=== PATIENT | male | born 1960 | race Caucasian/White ===

== ENCOUNTER 2021-05-25 13:38 | Emergency (ER) | payer OTHER ==
[2021-05-25 14:23] LABS: Protime INR 1.09
[2021-05-25 14:28] LABS: Absolute Lymphocytes (CBC) 1.4 K/uL (0.7-4.9); Basophils % 0.5 % (0-1.3); Hematocrit 49.9 % (39.6-49.0); Lymphocytes % 16.3 % (15.3-44.8); MPV 8.5 fL (7.6-11.3); RBC Red Blood Cell Count 5.38 M/uL (4.33-5.43)
[2021-05-25 15:01] LABS: Urine Blood Negative (Negative); Urine Glucose Negative (Negative); Urine Protein Negative (Negative); Urine Specific Gravity 1.025 (1.005-1.030)
--- NOTE | 2021-05-25 15:06 | RAD REPORT ---
EXAM DESCRIPTION: RAD - Chest Single View - 05/25/2021 2:59 pm CLINICAL HISTORY: COUGH COMPARISON: No comparisons FINDINGS: Lines: None. Lungs: No evidence of edema or pneumonia. Pleural: No significant pleural effusions or pneumothorax. Cardiac: The heart size is within normal limits. Bones: No acute fractures. Other: IMPRESSION: No acute cardiopulmonary disease.
[2021-05-25] MEDS ORDERED: NA CHLORIDE 0.9% 1,000 ML ONE (15:31)
[2021-05-25] MEDS ORDERED: NA CHLORIDE 0.9% 500 ML ONE (15:31)
[2021-05-25] MEDS ORDERED: THIAMINE 200 MG/2 ML INJ ONE (15:31)
[2021-05-25 16:42] LABS: ALT/SGPT 39 U/L (12-78); AST/SGOT 23 U/L (15-37); Albumin 4.1 g/dL (3.4-5.0); Alkaline Phosphatase 54 U/L (45-117); BUN Blood Urea Nitrogen 25 mg/dL (7-18); Bicarbonate 25 mmol/L (21-32); Bilirubin Direct 0.3 mg/dL (0-0.2); Bilirubin Total 1.9 mg/dL (0.2-1.0); Glucose Level 152 mg/dL (74-106); Lipase 98 U/L (73-393); Magnesium 2.1 mg/dL (1.8-2.4); NT PRO-BNP 24 pg/mL (<125); Protein, Total 8.5 g/dL (6.4-8.2); Sodium Level 137 mmol/L (136-145); Troponin (Emerg Dept Use Only) < 0.02 ng/mL (0.0-0.045)
[2021-05-25 16:43] LABS: Potassium 2.7 mmol/L (3.5-5.1)
--- NOTE | 2021-05-25 17:27 | EDPHYS ---
Physician Documentation [facility] Name: Mauricio Spears Age: 61 yrs Sex: Male : 1960 Arrival Date: 05/25/2021 Time: 13:38 Bed 13 Private MD: PREETI Physician Diony Castillo HPI: 05/25 17:18 This 61 yrs old Male presents to ER via Ambulatory with complaints of lashay Irregular Pulse. 17:18 The patient presents with a history of irregular heart beat, heart skipping beats. lashay Context: The symptoms occur at rest. Onset: The symptoms/episode began/occurred 2 day(s) ago. Duration: The patient or guardian reports multiple episodes, that wax and wane. Modifying factors: The symptoms are aggravated by nothing. The symptoms are alleviated by nothing. 17:19 The patient presents to the emergency department with diarrhea, that is intermittent. lashay Possible causes: unknown. no specific travel. Historical: - Allergies: 14:03 Morphine; ap3 - Home Meds: 14:03 losartan 100 mg oral tab 1 tab once daily [Active]; hydrochlorothiazide 25 mg Oral tab ap3 1 tab once daily [Active]; Zyrtec Oral [Active]; - PMHx: 14:03 Hypertensive disorder; ap3 - Immunization history:: Adult Immunizations up to date, Client reports receiving the 2nd dose of the Covid vaccine, Date received: October 2020. - Social history:: Smoking status: Patient denies any tobacco usage or history of. Patient uses alcohol, on a daily basis. drinks approx 4oz bourbon daily . ROS: 17:21 Constitutional: Negative for fever, chills, and weight loss, Eyes: Negative for injury, lashay pain, redness, and discharge, ENT: Negative for injury, pain, and discharge, Neck: Negative for injury, pain, and swelling, Respiratory: Negative for shortness of breath, cough, wheezing, and pleuritic chest pain, Abdomen/GI: Negative for abdominal pain, nausea, vomiting, diarrhea, and constipation, Back: Negative for injury and pain, : Negative for injury, bleeding, discharge, and swelling, MS/Extremity: Negative for injury and deformity, Skin: Negative for injury, rash, and discoloration, Neuro: Negative for headache, weakness, numbness, tingling, and seizure, Psych: Negative for depression, anxiety, suicide ideation, homicidal ideation, and hallucinations, Allergy/Immunology: Negative for hives, rash, and allergies, Endocrine: Negative for neck swelling, polydipsia, polyuria, polyphagia, and marked weight changes, Hematologic/Lymphatic: Negative for swollen nodes, abnormal bleeding, and unusual bruising. 17:21 Cardiovascular: Positive for palpitations. Exam: 17:21 Constitutional: This is a well developed, well nourished patient who is awake, alert, lashay and in no acute distress. Head/Face: Normocephalic, atraumatic. Eyes: Pupils equal round and reactive to light, extra-ocular motions intact. Lids and lashes normal. Conjunctiva and sclera are non-icteric and not injected. Cornea within normal limits. Periorbital areas with no swelling, redness, or edema. ENT: Nares patent. No nasal discharge, no septal abnormalities noted. Tympanic membranes are normal and external auditory canals are clear. Oropharynx with no redness, swelling, or masses, exudates, or evidence of obstruction, uvula midline. Mucous membranes moist. Neck: Trachea midline, no thyromegaly or masses palpated, and no cervical lymphadenopathy. Supple, full range of motion without nuchal rigidity, or vertebral point tenderness. No Meningismus. Chest/axilla: Normal chest wall appearance and motion. Nontender with no deformity. No lesions are appreciated. Cardiovascular: Regular rate and rhythm with a normal S1 and S2. No gallops, murmurs, or rubs. Normal PMI, no JVD. No pulse deficits. Respiratory: Lungs have equal breath sounds bilaterally, clear to auscultation and percussion. No rales, rhonchi or wheezes noted. No increased work of breathing, no retractions or nasal flaring. Abdomen/GI: Soft, non-tender, with normal bowel sounds. No distension or tympany. No guarding or rebound. No evidence of tenderness throughout. Back: No spinal tenderness. No costovertebral tenderness. Full range of motion. Male : Normal genitalia with no discharge or lesions. Skin: Warm, dry with normal turgor. Normal color with no rashes, no lesions, and no evidence of cellulitis. MS/ Extremity: Pulses equal, no cyanosis. Neurovascular intact. Full, normal range of motion. Neuro: Awake and alert, GCS 15, oriented to person, place, time, and situation. Cranial nerves II-XII grossly intact. Motor strength 5/5 in all extremities. Sensory grossly intact. Cerebellar exam normal. Normal gait. Psych: Awake, alert, with orientation to person, place and time. Behavior, mood, and affect are within normal limits. 17:31 ECG was reviewed by the Attending Physician. [facility] Vital Signs: 14:00 BP 159 / 93; Pulse 107; Resp 18; Temp 98.7(TE); Pulse Ox 100% ; Weight 81.65 kg; Height ap3 5 ft. 10 in. (177.80 cm) (R); Pain 0/10; 15:43 BP 125 / 68; Pulse 75; Resp 18; Pulse Ox 96% ; ap3 16:46 BP 124 / 79; Pulse 72; Pulse Ox 100% on R/A; ap3 18:11 BP 133 / 77; Pulse 67; Resp 17; Pulse Ox 100% on R/A; ap3 14:00 Body Mass Index 25.83 (81.65 kg, 177.80 cm) ap3 MDM: 13:53 Patient medically screened. lashay 17:29 Differential diagnosis: arrythmia, dehydration, Nonspecific abd pain, viral lashay gastroenteritis, gastroenteritis. Differential Diagnosis. Differential diagnosis: cardiac arrhythmia, generalized weakness, hypovolemia, near-syncope. Data reviewed: vital signs, nurses notes, lab test result(s), EKG, radiologic studies, plain films. Data interpreted: discharging machine operator: rate is 72 beats/min, rhythm is regular, Pulse oximetry: on room air is 100 %. Test interpretation: by ED physician or midlevel provider: ECG, plain radiologic studies. Counseling: I had a detailed discussion with the patient and/or guardian regarding: the historical points, exam findings, and any diagnostic results supporting the discharge/admit diagnosis, lab results, radiology results, the need for outpatient follow up, for definitive care, a manager analytical, a family practitioner. 05/25 13:56 Order name: Basic Metabolic Panel [facility] 05/25 13:56 Order name: CBC with Diff [facility] 05/25 13:56 Order name: LFT's; Complete Time: 16:51 [facility] 05/25 13:56 Order name: Magnesium; Complete Time: 16:51 [facility] 05/25 13:56 Order name: NT PRO-BNP; Complete Time: 16:51 [facility] 05/25 13:56 Order name: PT-INR; Complete Time: 15:25 [facility] 05/25 13:56 Order name: Troponin (emerg Dept Use Only); Complete Time: 16:51 [facility] 05/25 13:56 Order name: TSH; Complete Time: 16:51 [facility] 05/25 13:56 Order name: Lipase; Complete Time: 16:51 [facility] 05/25 13:57 Order name: Basic Metabolic Panel; Complete Time: 16:51 [facility] 05/25 13:57 Order name: CBC with Automated Diff; Complete Time: 15:25 [facility] 05/25 15:01 Order name: Urine Dipstick-Ancillary; Complete Time: 15:25 [facility] 05/25 13:56 Order name: XRAY Chest (1 view); Complete Time: 15:25 [facility] 05/25 13:56 Order name: Cardiac monitoring; Complete Time: 14:08 [facility] 05/25 13:56 Order name: EKG - Nurse/Tech; Complete Time: 14:08 [facility] 05/25 13:56 Order name: IV Saline Lock; Complete Time: 14:08 [facility] 05/25 13:56 Order name: Labs collected and sent; Complete Time: 14:08 [facility] 05/25 13:56 Order name: O2 Per Protocol; Complete Time: 14:07 [facility] 05/25 13:56 Order name: O2 Sat Monitoring; Complete Time: 14:07 [facility] 05/25 13:56 Order name: Urine Dipstick-Ancillary (obtain specimen); Complete Time: 15:10 [facility] 05/25 16:52 Order name: PO challenge: juice; Complete Time: 17:09 [facility] EC:31 Rate is 105 beats/min. Rhythm is regular. QRS [place] is Normal. [place] interval is normal. [facility] QRS interval is normal. QT interval is normal. No Q waves. T waves are Normal. No ST changes noted. Clinical impression: NSR w/ Non-specific ST/T Changes and No evidence of ischemia. Interpreted by me. Reviewed by me. Administered Medications: 14:40 Drug: NS 0.9% 500 ml Route: IV; Rate: bolus; Site: right forearm; ll1 16:13 Follow up: IV Status: Completed infusion; IV Intake: 500ml ap3 14:41 Drug: Thiamine 100 mg Route: IV; Rate: per protocol; Site: right forearm; ll1 16:12 Drug: NS 0.9% 1000 ml Route: IV; Rate: 125 ml/hr; Site: right antecubital; ap3 19:04 Follow up: IV Status: Completed infusion ap3 17:08 Drug: Potassium Chloride 20 mEq Route: IV; Rate: per protocol; Site: right antecubital; ap3 19:04 Follow up: Response: No adverse reaction; IV Status: Completed infusion; IV Intake: ap3 100ml 17:09 Drug: Potassium Effervescent Tablet 50 mEq Route: PO; ap3 19:10 Follow up: Response: No adverse reaction dc2 19:10 Drug: Potassium Effervescent Tablet 50 mEq Route: PO; dc2 Disposition Summary: 05/25/21 17:26 Discharge Ordered Location: Home lashay Problem: new lashay Symptoms: have improved lashay Condition: Stable lashay Diagnosis - Hypokalemia lashay - Palpitations lashay - Essential (primary) hypertension lashay Followup: lashay - With: Private Physician - When: 2 - 3 days - Reason: Recheck today's complaints, Continuance of care, Re-evaluation by your physician Followup: lashay - With: Megan Metzger MD - When: 2 - 3 days - Reason: Recheck today's complaints, Continuance of care, Re-evaluation by your physician Discharge Instructions: - Discharge Summary Sheet lashay - Alcohol Use Disorder lashay - Potassium Content of Foods lashay - Hypertension, Adult lashay - Palpitations lashay - Hypertension, Adult, [id number] lashay - How to Take Your Blood Pressure, [id number] lashay - Aspirin and Your Heart lashay - Palpitations, [id number] lashay - Hypokalemia lashay - Managing Your Hypertension lashay - Alcohol Abuse and Nutrition lashay Forms: - Medication Reconciliation Form lashay - Thank You Letter lashay - Antibiotic Education lashay - Prescription Opioid Use lashay Prescriptions: - losartan 100 mg Oral tablet - take 1 tablet by ORAL route once daily; 20 tablet; Refills: 0, Product lashay Selection Permitted - Potassium Chloride 20 meq Oral Packet - take 1 packet by ORAL route every 12 hours 1 packet in 6 (six) ounces of water lashay or juice; Take after meal; 30 packet; Refills: 0, Product Selection Permitted Signatures: Dispatcher [employer] Diony Calle MD MD cha Prokisch, Amanda, RN RN ap3 Jocelyne Marcus RN RN ll1 Perez, Gisel, RN RN dc2
--- NOTE | 2021-05-25 17:27 | ER ---
Nurse's Notes [facility] Name: Mauricio Spears Age: 61 yrs Sex: Male : 1960 Arrival Date: 05/25/2021 Time: 13:38 Bed 13 Private MD: Diagnosis: Hypokalemia;Palpitations;Essential (primary) hypertension Presentation: 05/25 14:00 Chief complaint: Patient states: He began feeling a little "off" yesterday when at the [place], patient reports the feelings resolved and he was able to safely drive home. Patient then reports the same feeling coming on today, and was encouraged to come to the ED by his at the bedside. Coronavirus screen: At this time, the client does not indicate any symptoms associated with coronavirus-19. Ebola Screen: No symptoms or risks identified at this time. Initial Sepsis Screen: Does the patient meet any 2 criteria? No. Patient's initial sepsis screen is negative. Does the patient have a suspected source of infection? No. Patient's initial sepsis screen is negative. Risk Assessment: Do you want to hurt yourself or someone else? Patient reports no desire to harm self or others. Onset of symptoms was May 24, 2021. 14:00 Method Of Arrival: Ambulatory ap3 14:00 Acuity: HAIR 3 ap3 Triage Assessment: 14:05 General: Appears uncomfortable, Behavior is cooperative. Pain: Denies pain. Neuro: ap3 Level of Consciousness is awake, alert, obeys commands, Oriented to person, place, time, situation, Appropriate for age Associate Professor Of Chemistry are equal bilaterally Moves all extremities. Gait is steady, Speech is normal, Facial symmetry appears normal. Cardiovascular: Reports since irregular pulse Capillary refill < 3 seconds Patient's skin is warm and dry. Respiratory: Airway is patent Respiratory effort is even, unlabored, Respiratory pattern is regular, symmetrical. Historical: - Allergies: 14:03 Morphine; ap3 - Home Meds: 14:03 losartan 100 mg oral tab 1 tab once daily [Active]; hydrochlorothiazide 25 mg Oral tab ap3 1 tab once daily [Active]; Zyrtec Oral [Active]; - PMHx: 14:03 Hypertensive disorder; ap3 - Immunization history:: Adult Immunizations up to date, Client reports receiving the 2nd dose of the Covid vaccine, Date received: October 2020. - Social history:: Smoking status: Patient denies any tobacco usage or history of. Patient uses alcohol, on a daily basis. drinks approx 4oz bourbon daily . Screenin:06 Abuse screen: Denies threats or abuse. Nutritional screening: No deficits noted. ap3 Tuberculosis screening: No symptoms or risk factors identified. Fall Risk None identified. Assessment: 14:06 Reassessment: See triage assessment. Pain: Denies pain. n/a Pain began N/A. ap3 14:19 Reassessment: Patient provided with urinal and education on urine collection. patient ap3 verbalized understanding. 15:43 Reassessment: Patient and/or family updated on plan of care and expected duration. Pain ap3 level reassessed. Patient is alert, oriented x 3, equal unlabored respirations, skin warm/dry/pink. 18:10 Reassessment: Patient will be discharged once IV potassium is complete. ap3 Vital Signs: 14:00 BP 159 / 93; Pulse 107; Resp 18; Temp 98.7(TE); Pulse Ox 100% ; Weight 81.65 kg; Height ap3 5 ft. 10 in. (177.80 cm) (R); Pain 0/10; 15:43 BP 125 / 68; Pulse 75; Resp 18; Pulse Ox 96% ; ap3 16:46 BP 124 / 79; Pulse 72; Pulse Ox 100% on R/A; ap3 18:11 BP 133 / 77; Pulse 67; Resp 17; Pulse Ox 100% on R/A; ap3 14:00 Body Mass Index 25.83 (81.65 kg, 177.80 cm) ap3 ED Course: 13:38 Patient arrived in ED. ds1 13:53 Dioyn Castillo MD is Attending Physician. lashay 13:59 Kelly Gao, DAHLIA is Primary Nurse. ap3 14:03 Triage completed. ap3 14:06 Arm band placed on right wrist. EKG completed in triage. Results shown to . ap3 14:07 Patient has correct armband on for positive identification. Bed in low position. Call ap3 light in reach. Side rails up X2. Adult w/ patient. animal anatomy teacher on. Pulse ox on. NIBP on. Door closed. Noise minimized. 14:07 Inserted saline lock: 20 gauge Blood collected. Patient maintains SpO2 saturation ap3 greater than 95% on room air. 14:59 XRAY Chest (1 view) In Process Unspecified. EDMS 17:26 Megan Metzger MD is Referral Physician. lashay 19:14 IV discontinued, intact, bleeding controlled, No redness/swelling at site. Pressure dc2 dressing applied. 19:14 No provider procedures requiring assistance completed. dc2 Administered Medications: 14:40 Drug: NS 0.9% 500 ml Route: IV; Rate: bolus; Site: right forearm; ll1 16:13 Follow up: IV Status: Completed infusion; IV Intake: 500ml ap3 14:41 Drug: Thiamine 100 mg Route: IV; Rate: per protocol; Site: right forearm; ll1 16:12 Drug: NS 0.9% 1000 ml Route: IV; Rate: 125 ml/hr; Site: right antecubital; ap3 19:04 Follow up: IV Status: Completed infusion ap3 17:08 Drug: Potassium Chloride 20 mEq Route: IV; Rate: per protocol; Site: right antecubital; ap3 19:04 Follow up: Response: No adverse reaction; IV Status: Completed infusion; IV Intake: ap3 100ml 17:09 Drug: Potassium Effervescent Tablet 50 mEq Route: PO; ap3 19:10 Follow up: Response: No adverse reaction dc2 19:10 Drug: Potassium Effervescent Tablet 50 mEq Route: PO; dc2 Intake: 16:13 IV: 500ml; Total: 500ml. ap3 19:04 IV: 100ml; Total: 600ml. ap3 Outcome: 17:26 Discharge ordered by . lashay 19:15 Discharged to home ambulatory. dc2 19:15 Condition: stable 19:15 Discharge instructions given to patient, Instructed on discharge instructions, Demonstrated understanding of instructions, follow-up care, Prescriptions given X 2. 19:38 Patient left the ED. dc2 Signatures: Dispatcher [employer] EDMS Diony Castillo MD MD cha Sanford, Demi ds1 Kelly Gao RN RN ap3 Jocelyne Marcus RN RN ll1 Gisel Todd RN RN dc2
[2021-05-25] MEDS ORDERED: POTASSIUM 25 MEQ EFFERV TAB ONE ×2 (18:01→19:06)
[2021-05-25] MEDS ORDERED: KCL 20 MEQ/100 mL IVPB 20 MEQ/100 ML BAG IV ONE (18:02)
[2021-05-25 20:39] VITALS: O2SAT 100
[2021-05-25 20:40] VITALS: BP 133/77
--- NOTE | 2021-05-26 11:49 | EKG ---
Test Date: 2021-05-25 Test Time: 13:51:02 Matrix Inspector: RAMILA MEASUREMENT RESULTS: Intervals: Rate: 105 SD: 166 QRSD: 78 QT: 322 QTc: 425 [place]: P: 52 SD: 166 QRS: 33 T: 39 INTERPRETIVE STATEMENTS: Sinus tachycardia Anteroseptal infarct, age undetermined Abnormal ECG No previous ECG available for comparison Electronically Signed On 05-26-21 11:46:17 CDT by Tank Reyes
== END 2021-05-25 19:38 | disposition home or self-care (01) ==
LOC: ER 13:38
DX: E87.6 Hypokalemia (principal); I10 Essential (primary) hypertension; Z88.5 Allergy status to narcotic agent
CPT/HCPCS: 96365; 96361; 93005; 85025; 80048; 36415; 83735; 85610; 80076; 84443; 81003; 84484; 83690; 83880; 71045; 96375; 99285; 96366; J3411; J3480; J7040; J7030